=== PATIENT | female | born 2000 | race Caucasian/White ===

== ENCOUNTER 2020-12-20 18:42 | Emergency (ER) | payer MEDICAID ==
[~2020-12-20] VITALS: Ht 160 cm; Wt 49.0 kg
[~2020-12-20 18:42] MED LIST: DIPH25CA83 MT; IBUP-2028 MT
[2020-12-20] MEDS ORDERED: IBUP-2028 MT (19:57)
[2020-12-20 20:00] VITALS: BP 122/60
== END 2020-12-20 20:06 | disposition home or self-care (01) ==
LOC: ER 18:42
DX: S49.92XA Unspecified injury of left shoulder and upper arm, initial encounter (principal); Z98.890 Other specified postprocedural states; V49.9XXA Car occupant (driver) (passenger) injured in unspecified traffic accident, initial encounter; Y93.89 Activity, other specified; Y92.89 Other specified places as the place of occurrence of the external cause; Y99.8 Other external cause status
CPT/HCPCS: 73030; 99283

== ENCOUNTER 2021-01-27 05:35 | Emergency (ER) | payer MEDICAID ==
[~2021-01-27] VITALS: Ht 152.4 cm; Wt 49.0 kg
[2021-01-27] MEDS ORDERED: KETOROLAC 30MG/ML VIAL IV STA (06:12)
[2021-01-27] MEDS ORDERED: CEFTRIAXONE 1 G PREMIX 50 ML IV ONE (06:15)
[2021-01-27] MEDS ORDERED: SODIUM CHLORIDE 0.9% 1,000 ML IV ONE ×2 (06:15→08:15)
[2021-01-27 06:27] LABS: CLARITY URINE CLOUDY (CLEAR); COLOR URINE YELLOW (YELLOW); KETONES URINE NEGATIVE (NEGATIVE); LEUKOCYTE ESTERASE URINE 3+ (NEGATIVE); NITRITE URINE NEGATIVE (NEGATIVE); OCCULT BLOOD URINE 3+ (NEGATIVE); PH URINE 7.5 (4.5-8.0); PROTEIN URINE 1+ (NEGATIVE); SPECIFIC GRAVITY URINE 1.013 (1.005-1.030)
[2021-01-27 06:35] LABS: HEMATOCRIT. 39.8 % (36.0-48.0); HEMOGLOBIN. 13.1 g/dL (12.0-16.0); MEAN CORPUSCULAR HEMOGLOBIN 29.6 pg (28.0-32.0); MEAN CORPUSCULAR VOLUME 90.1 fL (81.0-99.0); MEAN PLATELET VOLUME 7.8 fl (7.4-10.4); PLATELET 277 x1000/uL (130-400); RED BLOOD CELL COUNT 4.41 mill/uL (4.2-5.4); RED CELL DISTRIBUTION WIDTH 13.5 % (11.6-14.6)
[2021-01-27 06:39] LABS: CHLORIDE 106 mEq/L (98-107)
[2021-01-27 06:41] LABS: HCG SCREEN NEGATIVE
[2021-01-27 07:54] LABS: PLATELET ESTIMATE NORMAL
[2021-01-27] MEDS ORDERED: ACETAMINOPHEN 325MG TABLET PO ONE (08:15)
[2021-01-27] MEDS ORDERED: IOHEXOL-300 100 ML BOTTLE ONE (08:31)
[2021-01-27] MEDS ORDERED: CEPH500C2 MT (12:35)
[2021-01-27] MEDS ORDERED: ACET650T37 MT (12:37)
[2021-01-27] MEDS ORDERED: SODIUM CHLORIDE 0.9% 500 ML IV NR (12:45)
[2021-01-27] MEDS ORDERED: IBUPROFEN 400MG TABLET PO NR (12:45)
[2021-01-27 12:59] VITALS: BP 101/51
== END 2021-01-27 13:20 | disposition home or self-care (01) ==
LOC: ER 05:35
DX: N10 Acute pyelonephritis (principal); Z98.890 Other specified postprocedural states
CPT/HCPCS: 36415; 74177; 80053; 81003; 84703; 85025; 85610; 87040; 87077; 87086; 87186; 96361; 96365; 99285; J0696; J1885; J7030; Q9967